=== PATIENT | female | born 1980 | race Caucasian/White ===

== ENCOUNTER 2020-09-21 09:53 | Emergency (ER) | payer OTHER, SELFPAY ==
[2020-09-21 11:23] VITALS: BP 000/00; PULSE 0; RESP 0; TEMP -17.7; TEMP 0
== END 2020-09-21 11:25 | disposition left against medical advice (07) ==
LOC: UTC 10:00
PROVIDERS: Emergency Provider Nurse Practitioner Family
DX: Z53.21 Procedure and treatment not carried out due to patient leaving prior to being seen by health care provider (principal)

== ENCOUNTER 2024-12-02 10:30 | Outpatient (CLI) | payer OTHER, SELFPAY ==
--- OUTSIDE RECORDS SUMMARY | 2023-09-16 05:00 | XMS_ITS ---
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 Travel outside of the [place]: Travel History: Uses seat belts Encounters Encounter Location Date Provider Diagnosis [facility] [address] [facility] [address] [place] [address] 09/16/2023 Provider Migration Plan Of Treatment No Information Progress Notes * Angi HAYESDOB:[birth year] (44 yo F)Acc No.[id number]:09/16/2023 Patient: Emily HERRERAica :1980 A ge:42 Y S ex:Female Address:[facility] [place], [address] Subjective: * Chief Complaints: * Medical History: *NO SIGNIFICANT GENETIC HISTORY 7 [place]: Adopted/ Step Children living in household 1 7 [place]: Self breast exam - No 7 [place]: Sexually active - Yes 7 [place]: Dairy Product Use - Yes Cognitive Status: [...] M iscellaneous: E xercise: No Exercise. 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 Travel outside of the [place]: Travel History: Uses seat belts. H ousehold: H ousehold M arital status: . * Allergies: M edications: NO KNOWN DRUG ALLERGIES: Unspecified - AllergyyesAllergies Verified. * * Date:
[2024-12-02 15:06] LABS: Hematocrit 39.3 % (37.0-47.0); Hemoglobin 13.5 g/dL (12.2-16.2); Immature Granulocytes % 0.4 %; Mean Corpuscular HGB Conc 34.4 g/dL (31.8-35.4); Mean Corpuscular Hemoglobin 32.5 pg (27.0-31.2); Mean Corpuscular Volume 94.5 fl (81-99); Nucleated Red Blood Cells % 0 %; Platelet Count 279 K/mm3 (142-424); Red Blood Count 4.16 M/mm3 (4.20-5.40); Red Cell Distribution Width-SD 40.4 fL; White Blood Count 4.9 K/mm3 (4.8-10.8)
[2024-12-02 15:25] LABS: INR 0.93 (0.9-1.1); Prothrombin Time 10.4 seconds (10.1-12.5)
[2024-12-02 16:03] LABS: Alanine Aminotransferase 54 U/L (12-78); Albumin Level 4.1 g/dl (3.5-5.0); Albumin/Globulin Ratio 1.6 (1.1-1.8); Alkaline Phosphatase 90 U/L (38-126); Anion Gap 11.6 mEq/L (5-15); Aspartate Amino Transferase 37 U/L (14-36); Bilirubin,Total 0.9 mg/dl (0.2-1.3); Blood Urea Nitrogen 14 mg/dl (7-17); Calcium 9.4 mg/dl (8.4-10.2); Carbon Dioxide 27 mmol/L (22.0-30.0); Chloride 103 mmol/L (98-107); Cholesterol 164 mg/dl (140-200); Creatinine,Serum 0.70 mg/dl (0.52-1.04); Estimated Glomerular Filt Rate 91 ml/min (>60); GFR (African American) 111 ML/MIN (>60); Globulin 2.5 g/dL (1.3-3.2); Glucose 82 mg/dl (74-100); HDL Cholesterol 70 mg/dl (40-60); Potassium 4.6 mmoL/L (3.5-5.1); Sodium 137 mmol/L (136-145); Total Protein,Serum 6.6 g/dl (6.3-8.2); Triglycerides 57 mg/dl (30-150); Uric Acid 4.0 mg/dl (2.5-6.2)
[2024-12-02 16:10] LABS: C-Reactive Protein 0.5 mg/L (0-4)
[2024-12-02 16:12] LABS: Hemoglobin A1C 5.0 % (4.0-6.0)
[2024-12-02 16:34] LABS: Thyroid Stimulating Hormone 2.00 uIU/mL (0.465-4.68)
[2024-12-02 16:53] LABS: Vitamin B12 425 pg/mL (239-931)
[2024-12-02 16:56] LABS: Hepatitis C Ab Qual. W/ RFX NEGATIVE (Negative)
[2024-12-02 17:12] LABS: Folate 13.80 ng/mL
[2024-12-03 05:14] LABS: Hepatitis B Surface Antigen Negative (Negative)
[2024-12-03 08:27] LABS: RA Latex Turbid. <10.0 IU/mL (<14.0)
[2024-12-03 17:11] LABS: Antinuclear Antibodies, IFA Negative (.)
--- OUTSIDE RECORDS SUMMARY | 2024-12-04 10:35 | XMS_ITS | Patient Health Record ---
Author Organization [facility] Address [address] [place] [address] Care Team Providers Care Escrow Processor Name Role Phone Beti Seymour Unavailable [phone] Allergies Allergen (clinical drug ingredient) Drug/Non Drug Allergy documented on EMR Reaction Allergy Type Onset Date Status Medications: NO KNOWN DRUG ALLERGIES (uncoded) Unspecified Allergy Active Reason For Referral No Information Social History Tobacco Use: Social History Observation Description Date Smoking Status WARNING: Information temporarily unavailable Social History Household: Social Info Question Answer Notes Household Marital status: Tobacco Use: Social Info Question Answer Notes Tobacco Control (Standard) Tobacco use: 0 04/24/2020 - Additional Details Category Social Info Options Details Miscellaneous: Exercise: No Exercise 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
== END 2024-12-02 23:59 ==
LOC: LAB.DROPOF 12-04 10:28
PROVIDERS: PCP Nurse Practitioner; Visit Provider Nurse Practitioner
DX: M25.561 Pain in right knee (principal); R23.3 Spontaneous ecchymoses; K06.8 Other specified disorders of gingiva and edentulous alveolar ridge; R68.89 Other general symptoms and signs; E66.811 Obesity, class 1; Z11.59 Encounter for screening for other viral diseases
CPT/HCPCS: 80053; 80061; 82607; 82746; 83036; 84443; 84550; 85025; 85610; 85651; 86038; 86140; 86225; 86235; 86431; 86803; 87340; 87389

== ENCOUNTER 2024-12-20 15:53 | Outpatient (CLI) | payer OTHER, SELFPAY ==
--- OUTSIDE RECORDS SUMMARY | 2024-12-20 15:56 | XMS_ITS | Clinical Summary ---
Author Organization [facility] Address [address], [place] [address] Phone Care Team Providers Care Metal Stamping Machine Operator Name Role Phone Unavailable Primary Care Provider Unavailabl e Allergies No known active allergies Medications Lancets Misc MiscIndications :Hypoglycemia Pt to check BS once daily and PRN 100 Each 2 01/14/20 16 Active Additional Information Patient not taking.Reason: Pt electing to not take the medication, Reported on 02/25/2020 Blood Sugar Diagnostic Misc StripIndication s:Hypoglycemia Check BS QD & PRN OneTouch Verio Flex meter in provided from PCP office or dispense what ins will cover 1 box 11 01/14/20 16 Active Additional Information Patient not taking.Reported on 02/25/2020 Blood-Glucose Meter Misc KitIndications: Hypoglycemia Dispense what ins will cover (pt provided One Touch Verio Flex Meter from PCP office) 1 Kit 01/14/20 16 Active Additional Information Patient not taking.Reported on 02/25/2020 Cholecalciferol , Vitamin D3, 10,000 unit Oral CapsuleIndicati ons:Vitamin D deficiency 1 cap daily for a month the 1 cap weekly. 100 Cap 1 01/18/20 16 Active Additional Information Patient not taking.Reported on 02/25/2020 hydrocortisone 2.5 % Top CreamIndication s:Allergic contact dermatitis, unspecified trigger Apply topically 2 times daily. BID x 2 weeks 20 g 05/13/19 18 Active Additional Information Patient not taking.Reported on 02/25/2020 pimecrolimus (ELIDEL) 1 % Top CreamIndication s:Allergic contact dermatitis, unspecified trigger Apply topically 2 times daily. Apply after hydrocortisone cream 30 g 1 05/13/19 18 Active Additional Information Patient not taking.Reported on 02/25/2020 hydrOXYzine (VISTARIL) 25 mg Oral CapsuleIndicati ons:Stress reaction Take 1 Cap by mouth 3 times daily as needed. 30 Cap 10/23/19 19 Active Additional Information Patient not taking.Reported on 02/25/2020 Active Problems Patient Care Coordination No te Formatting of this note migh t be different from the original. Care gap audit completed by Penny Colon on 04/17/2020. Problem Noted Date Diagnosed Date Vitamin D deficiency 01/18/2016 Mixed incontinence 02/19/2015 Abnormal uterine bleeding (AUB) 01/15/2015 Immunizations Immunization Administration Dates Next Due Influenza Vaccine Quadrivalent 11/12/2018 Influenza Vaccine Quadrivalent PF 11/18/2019 Pneumococcal Polysaccharide 23 Valent 11/12/2018 Surgical History Surgery Date Site/Laterality Comments TUBAL LIGATION essure ENDOMETRIAL ABLATION 01/15/2015 N/A ENDOMETRIAL ABLATION WITH NOVASURE HYSTEROSCOPY ; Surgeon: Jasson Jorge MD; Location: [facility] MA[facility] OR; Service: Gynecology URETHROPEXY 02/19/2015 N/A TRANSOBTURATOR TAPE URETHROPEXY SLING CYSTOSCOPY; Surgeon: Penny Doss MD; Location: [facility] OR; Service: Gynecology Medical devices from this surgery are in the Medical Devices section. CYSTOSCOPY 02/19/2015 Surgeon: Penny Doss MD; Location: [facility] OR; Service: Gynecology Medical devices from this surgery are in the Medical Devices section. Medical History Medical History Date Comments Bladder problem Urinary incontinence Social History Tobacco Use Types Packs/Day Years Used Date Smoking Tobacco: Every Day Cigarettes 1 24.8 Started: 2000 Smokeless Tobacco: Never Tobacco Cessation:Ready to Q uit: No; Counseling Given: Yes Alcohol Use Standard Drinks/Week Comments No 0 (1 standard drink = 0.6 oz pur e alcohol) PHQ-2 Answer Date Recorded PHQ-2 Total Score 0 11/18/2019 Sexually Active Control Partners Comments Yes Implant Male ABLATION Comments No Sex and Gender Information Value Date Recorded Sex Assigned at Not on file Legal Sex Female 6:16 PM EDT Gender Identity Not on file Sexual Orientation Not on file Occupation Industry Job Start Date Job End Date Not on file Not on file Not on file Not on file Obstetrics History Para Term AB IAB SAB Ectopic Multiple Livin g Live Births 2 2 2 0 0 0 0 0 0 2 2 Date Outcome GA Total Labor Labor/2nd/3rd Weight Sex Type Anes PTL Janice A1 A5 Name Clin 09/04 Term 6 lb 13 oz (3.09 kg) F Vag-S pont Epidura l Living 03/05 Term 7 lb 2 oz (3.232 kg) F Vag-S pont None Living Last Filed Vital Signs Vital Sign Reading Time Taken Comments Blood Pressure 102/68 10/01/2020 2:38 PM EDT Pulse 87 10/01/2020 2:38 PM EDT Temperature 37.1 C (98.8 F) 10/01/2020 2:38 PM EDT Respiratory Rate 18 10/01/2020 2:38 PM EDT Oxygen Saturation 97% 10/01/2020 2:38 PM EDT Inhaled Oxygen Concentration - - Weight 80.3 kg (177 lb) 10/01/2020 2:38 PM EDT Height 162.6 cm (5' 4 ) 10/01/2020 2:38 PM EDT Body Mass Index 30.38 10/01/2020 2:38 PM EDT Plan of Treatment Health Maintenance Due Date Last Done Comments DTaP/TDaP/Td (1 - Tdap) 2000 Hepatitis B Vaccine (1 of 3 - 19+ 3-dose series) 2000 Cervical Cancer Screening 2002 Pap Smear 2002 HPV/Pap Cotest 10/16/2011 Annual Wellness Exam 11/17/2020 11/18/2019, 11/13/19 Breast Cancer Screening 2021 COVID-19 Vaccine (3 - 2024- season) 2024 07/18/2020, 06/27/2020 Influenza Vaccine (#1) 2024 , 11/12/2018, 01/14/2016 (Declined), Additional history exists Pneumococcal Vaccine 0-49 Aged Out 11/12/2018 No longer eligible based on patient's age to complete this topic Meningococcal B Vaccine Aged Out No l onger eligible based on patient's age to complete this topic Goals Goal Patient Goal Type Associated Problems Recent Progress Patient-Stated? Author Maintain a healthy diet, exercise regularly and maintain an ideal body weight General No Anna Mandel MA Stay Tobacco Free Lifestyle No Anna Mandel MA Medical Devices Implanted Type Area Inclusion Special Educator Device Identifier Shelf Expiration Date Model / Serial / Lot Guadalupe Subfascial Darshan - [id number] Implanted:Qty: 1 on 02/19/2015 by Penny Doss MD at [facility] N/A: [facility] 11/05/2017 [id number] / / [id number] Insurance POS [facility] POS
--- NOTE | 2024-12-20 16:00 | MM_ITS ---
PROCEDURE INFORMATION: Exam: MG Bilateral Screening 3D Mammography Exam date and time: 12/20/2024 3:54 PM Age: 44 years old Clinical indication: Screening examination TECHNIQUE: Imaging protocol: Bilateral Screening tomosynthesis and 2D mammography including computer-aided detection (CAD) when performed. COMPARISON: No relevant prior studies available. FINDINGS: MAMMOGRAPHY: Breast composition: There are scattered areas of fibroglandular density. Mass: None. Architectural distortion: None. Calcifications: No suspicious calcifications. Asymmetric density: None. Skin thickening: None. Axillary adenopathy: None. IMPRESSION: No mammographic evidence of malignancy. Annual screening is recommended unless otherwise clinically indicated. ASSESSMENT: BI-RADS Category 1: Negative.
== END 2024-12-20 23:59 | disposition home or self-care (01) ==
LOC: RAD 15:54
PROVIDERS: PCP Nurse Practitioner; Visit Provider Nurse Practitioner
DX: Z12.31 Encounter for screening mammogram for malignant neoplasm of breast (principal); R92.323 Mammographic fibroglandular density, bilateral breasts
CPT/HCPCS: 77063; 77067

== ENCOUNTER → 2025-01-29 14:26 | Outpatient (CLI) | payer OTHER, SELFPAY ==
--- OUTSIDE RECORDS SUMMARY | 2023-09-16 04:00 | XMS_ITS ---
Author Organization [facility] Address [address] [facility] [address] [place] [address] Care Team Providers Care Intensive Care Ambulance Paramedic Name Role Phone Beti Seymour Unavailable [phone] Migration, Provider Unavailable Unavailable Allergies Allergen (clinical drug ingredient) Drug/Non Drug Allergy documented on EMR Reaction Allergy Type Onset Date Status Medications: NO KNOWN DRUG ALLERGIES (uncoded) Unspecified Allergy Active Social History Tobacco Use: Social History Observation Description Date Smoking Status WARNING: Information temporarily unavailable Social History Household: Social Info Question Answer Notes Household Marital status: Tobacco Use: Social Info Question Answer Notes Tobacco Control (Standard) Tobacco use: 0 04/24/2020 - Additional Details Category Social Info Options Details Miscellaneous: Exercise: No Exercise 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 Travel outside of the [place]: Travel History: Uses seat belts Encounters Encounter Location Date Provider Diagnosis [facility] [address] [facility] [address] [place] [address] 09/16/2023 Provider Migration Plan Of Treatment No Information Progress Notes * Angi HYAESDOB:[birth year] (44 yo F)Acc No.[id number]:09/16/2023 Patient: Emily HERRERAica :1980 A ge:42 Y S ex:Female Address:[facility] [place], [address] Subjective: * Chief Complaints: * Medical History: *NO SIGNIFICANT GENETIC HISTORY 7 [place]: Adopted/ Step Children living in household 1 7 [place]: Self breast exam - No 7 [place]: Sexually active - Yes 7 [place]: Dairy Product Use - Yes Cognitive Status: No Impairment Unknown: Smoker * OB History: P regnancy History (GPA) T otal Pregnancies 2 , L iving 2 . G P G ravida: 2 , P abi: 0 . P regnancy # 1: B irthDate :09/04/2004 BirthLbs :6 BirthOzs :13 Comment : Weight: 6.13 DeliveryType :Vaginal LaborLength :23 PTL :N Sex :F. P regnancy # 2: B irthDate :03/05/2007 BirthLbs :6 BirthOzs :18 Comment : Weight: 6.18 DeliveryType :Vaginal LaborLength :4 PTL :N Sex :F. * Surgical History: Endometrial ablation 01/15/2015 * Family History: F amily History Verified.. Daughter: Anxiety Disorder, Generalized, Mother: Hypertension, Benign Essential, Age of Onset: 60, Hypercholesterolemia (Isolated), Age of Onset: 60. * Social History: T obacco Use: T obacco Control (Standard) T obacco use: 04/24/2020 -. M iscellaneous: E xercise: No Exercise. 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 Travel outside of the [place]: Travel History: Uses seat belts. H ousehold: H ousehold M arital status: . * Allergies: M edications: NO KNOWN DRUG ALLERGIES: Unspecified - AllergyyesAllergies Verified. * * Date:
--- NOTE | 2025-01-29 14:26 | XR_ITS ---
FINAL REPORT CLINICAL HISTORY: right knee pain FINDINGS: RIGHT KNEE 3 views of the right knee were obtained. There is no acute fracture or dislocation. Visualized joint spaces are normally aligned. Soft tissues are unremarkable. IMPRESSION: No acute bony abnormality. Reviewed, Interpreted and Dictated by Daryl Antunez MD Transcribed by Miranda Cornejo Authenticated and [facility]
--- OUTSIDE RECORDS SUMMARY | 2025-01-29 15:39 | XMS_ITS | Clinical Summary ---
Author Organization [facility] Address [address], [place] [address] Phone Care Team Providers Care Sample Stitcher Name Role Phone Unavailable Primary Care Provider [...] Used Date Smoking Tobacco: Every Day Cigarettes 03 09 Started: 2000 Smokeless Tobacco: Never Tobacco Cessation:Ready [...] 11/13/19 Breast Cancer Screening 2021 COVID-19 Vaccine ( - 2024- season) 2024 07/18/2020, 06/27/2020 Influenza [...] Mandel MA Medical Devices Implanted Type Area Adoption Coordinator Device Identifier Shelf Expiration Date Model / Serial / Lot Guadalupe Subfascial Darshan - [id number] Implanted:Qty: 1 on 02/19/2015 by Penny Doss MD at [facility] N/A: Located within [facility] 11/05/2017 [id number] / / [id number] Insurance POS [facility] POS
--- OUTSIDE RECORDS SUMMARY | 2025-01-29 15:39 | XMS_ITS ---
Author Organization Unknown ENCOUNTERS Encounter Performer Location Date Diagnosis Diagnosis Status Emergency [place] [id number] [facility] [address] [id number] *Note: Encounters from your own facility or health system may be excluded. Allergies, Adverse Reactions, Alerts Allergen Type Severity Identification Date Medications Name Date Quantity Days Supplied GPI Number
--- OUTSIDE RECORDS SUMMARY | 2025-01-29 15:39 | XMS_ITS | Patient Health Record ---
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
== END ==
LOC: RAD 14:26
PROVIDERS: PCP Nurse Practitioner; Visit Provider Student in an Organized Health Care Education/Training Program
DX: M25.561 Pain in right knee (principal)
CPT/HCPCS: 73562